=== PATIENT | female | born 1960 | race Caucasian/White ===

== ENCOUNTER → 2023-11-07 15:55 | Outpatient (REF) | payer MEDICARE, SELFPAY ==
[2023-11-07 16:34] LABS: INR 0.93; PT 12.2 Sec (11.4-14.6)
[2023-11-07 16:35] LABS: APTT 25.1 Sec (23.4-35.0)
== END ==
LOC: REG 15:55
PROVIDERS: ATTENDING PHYSICIAN Internal Medicine Hematology & Oncology; FAMILY PHYSICIAN Family Medicine
DX: C82.91 Follicular lymphoma, unspecified, lymph nodes of head, face, and neck (principal)
CPT/HCPCS: 36415; 85610; 85730

== ENCOUNTER → 2023-11-23 08:08 | Outpatient (REF) | payer MEDICARE, SELFPAY ==
[2023-11-23 08:23] VITALS: BP 130/56; BP_SYST 94
[2023-11-23 09:02] VITALS: BP 128/66
== END ==
LOC: RADI 08:08
PROVIDERS: ATTENDING PHYSICIAN Internal Medicine Hematology & Oncology; FAMILY PHYSICIAN Family Medicine
DX: Z45.2 Encounter for adjustment and management of vascular access device (principal); Z85.72 Personal history of non-Hodgkin lymphomas
CPT/HCPCS: 36590; 77001

== ENCOUNTER → 2024-06-26 07:20 | Outpatient (REF) | payer MEDICARE, SELFPAY | LOC: HWRAD 07:20 | PROVIDERS: ATTENDING PHYSICIAN Physician Assistant | DX: Z85.72 Personal history of non-Hodgkin lymphomas (principal); K76.0 Fatty (change of) liver, not elsewhere classified; I25.10 Atherosclerotic heart disease of native coronary artery without angina pectoris | CPT/HCPCS: 75571; 76700 ==

== ENCOUNTER → 2024-11-23 11:03 | Outpatient (REF) | payer MEDICARE, SELFPAY | LOC: HWRAD 11:03 | PROVIDERS: ATTENDING PHYSICIAN Nurse Practitioner Family; FAMILY PHYSICIAN Physician Assistant | DX: R05.3 Chronic cough (principal) | CPT/HCPCS: 71250 ==

== ENCOUNTER 2024-12-03 06:26 | Day surgery (SDC) | payer MEDICARE, SELFPAY | END 2024-12-03 09:23 | disposition home or self-care (01) | LOC: GI 06:26 | PROVIDERS: ATTENDING PHYSICIAN Internal Medicine | DX: Z12.11 Encounter for screening for malignant neoplasm of colon (principal) | CPT/HCPCS: G0121 ==

== ENCOUNTER → 2024-12-10 12:30 | Outpatient (REF) | payer MEDICARE, SELFPAY | LOC: HWLAB 12:30 | PROVIDERS: ATTENDING PHYSICIAN Nurse Practitioner Family; FAMILY PHYSICIAN Physician Assistant | DX: R05.3 Chronic cough (principal) | CPT/HCPCS: 36415; 87070; 87077; 87102; 87116; 87186; 87205; 87206 ==

== ENCOUNTER → 2024-12-18 14:52 | Outpatient (REF) | payer MEDICARE, SELFPAY | LOC: HWRAD 14:52 | PROVIDERS: ATTENDING PHYSICIAN Nurse Practitioner Family; FAMILY PHYSICIAN Physician Assistant | DX: R05.3 Chronic cough (principal) | CPT/HCPCS: 70486 ==

== ENCOUNTER → 2024-12-25 13:25 | Outpatient (REF) | payer MEDICARE, SELFPAY | LOC: CLAB 13:25 | PROVIDERS: ATTENDING PHYSICIAN Student in an Organized Health Care Education/Training Program | DX: J32.9 Chronic sinusitis, unspecified (principal) | CPT/HCPCS: 87070; 87205 ==

== ENCOUNTER → 2025-02-08 07:21 | Outpatient (REF) | payer MEDICARE, SELFPAY ==
[2025-02-08 09:37] LABS: Hematocrit 41.5 % (37.0-47.0); Hemoglobin 13.6 g/dL (12.0-16.0); Mean Corp Hgb Conc. 32.8 g/dL (33.0-37.0); Mean Corpuscular Volume 97.6 fL (81.0-99.0); Platelet Count 259 10^3/uL (130-400); Red Cell Dist. Width 12.8 % (11.5-14.5)
[2025-02-08 09:46] LABS: Blood Urea Nitrogen 20 mg/dl (7-17); Calcium 9.6 mg/dl (8.4-10.2); Carbon Dioxide 29 mmol/L (22-30); Chloride 105 mmol/L (98-107); Glucose 95 mg/dl (70-99); Potassium 4.7 mmol/L (3.5-5.1); Sodium 137 mmol/L (135-145); eGFR > 60.00
== END ==
LOC: SDSPAT 07:21
PROVIDERS: ATTENDING PHYSICIAN Student in an Organized Health Care Education/Training Program; FAMILY PHYSICIAN Physician Assistant
DX: Z01.818 Encounter for other preprocedural examination (principal)
CPT/HCPCS: 36415; 80048; 85027; 93005

== ENCOUNTER 2025-03-04 06:18 | Day surgery (SDC) | payer MEDICARE, SELFPAY ==
[2025-02-08 14:04] VITALS: BMI 30.7
[2025-03-04 11:25] VITALS: BP 141/78
[2025-03-04] MEDS: NORMOSOL-R/PLASMALYTE-A 1000 IV (11:34)
[2025-03-04 11:36] VITALS: BMI 30.7
[2025-03-04 17:05] VITALS: BP 137/49; BP 141/78
[2025-03-04 17:15] VITALS: BP 124/50
[2025-03-04 17:30] VITALS: BP 116/58
[2025-03-04 17:40] VITALS: BP 124/95
[2025-03-04 17:55] VITALS: BP 129/81
--- NOTE | 2025-03-05 08:20 | OR.RPT ---
Operative Report
Operative Report
Patient name: Tri Jones
Date of : 1960

Date of operation: 03/04/2025
Preoperative diagnosis: Bilateral intranasal synechia, bilateral chronic maxillary sinusitis, bilateral chronic ethmoid sinusitis, bilateral chronic sphenoid sinusitis, inferior turbinate hypertrophy
Postoperative diagnosis: Bilateral intranasal synechia, bilateral chronic maxillary sinusitis, bilateral chronic ethmoid sinusitis, bilateral chronic sphenoid sinusitis, inferior turbinate hypertrophy
Operation/procedures performed:
1. Bilateral total ethmoidectomy with sphenoidotomy and removal of tissue
2. Bilateral maxillary antrostomy with tissue removal
3. Bilateral maxillary antrostomy with tissue removal
4. Bilateral lysis of intranasal synechia
5. Bilateral inferior turbinate reduction
Surgeon: Miguel Buck DO
Anesthesia: General, ETT
Anesthesiologist: Alba
Surgical Indications: Tri is a 64-year-old woman with a history of chronic sinusitis status post endoscopic sinus surgery greater than a decade ago who presented to the otolaryngology department over the last several months with progressively
worsening thick smelling postnasal drip, facial pain and pressure and chronic cough. Nasal endoscopy and CT sinus demonstrated evidence of chronic bilateral sinusitis, bilateral intranasal synechiae obstructing outflows of the maxillary and ethmoid
sinuses. This was initially treated with a course of medical therapy which included nasal saline irrigations, intermittent antibiotics and intranasal corticosteroids. After 4 to 6 weeks of adequate medical therapy and no relief, recommendation was
made for endoscopic sinus surgery, lysis of intranasal synechiae and turbinate reduction. After careful deliberation the patient provided informed written consent for this procedure.
Details of Procedure: The patient was met in the preoperative holding area where informed written consent was reviewed and all questions were answered. The patient was then brought back to the operating room and transferred supine on the operating
room table secured with a safety belt. General anesthesia was induced and the patient was intubated orotracheally without difficulty by the anesthesia team.
The table was rotated 90 degrees away from anesthesia and the OMGP[employer] sinus navigation and image guidance equipment was set up. Cottonoid pledgets soaked in topical 4% cocaine were placed into the bilateral nasal cavities for decongestion and
vasoconstriction as well as topical anesthesia. The remainder of the operative equipment was then set up and the image guidance system was calibrated after the patient was prepped and draped. A surgical timeout was then performed confirming the
necessary perioperative information. Next using the 0 degree 4 mm nasal endoscope, 1% lidocaine with epinephrine 1 100,000 was infiltrated in the bilateral nasal cavities for local anesthesia and vasoconstriction. The cocaine soaked pledgets were
placed back in the nasal cavities. Next submucous resection of the bilateral inferior turbinates with turbinate outfracture was then performed. This improved the surgical exposure. The operation was then started on the left and a [place] elevator
was used to divide the intranasal synechia on the left which was between the left middle turbinate and lateral nasal wall. This scar band was obstructing the outflow of the left maxillary sinus as well as the ostiomeatal complex. The inferior
third of the left middle turbinate was then resected using a Miky-Cut instrument and this was completed with a microdebrider. A curved ball-tipped probe was then used to confirm entry into the left maxillary sinus and once this was done, a
microdebrider and backbiter was used to revise the left maxillary antrostomy and remove tissue from the left maxillary sinus. Dissection then proceeded posteriorly through the anterior ethmoids and extensive polyps were removed using microdebrider.
Dissection then proceeded through the posterior ethmoids where there were fewer polyps and mostly polypoid tissue. The left sphenoid sinus was then entered through the existing sphenoid sinusotomy and small amounts of tissue were removed. The
left nasal cavity and paranasal sinuses were irrigated with sterile saline and suctioned dry. Afrin-soaked pledgets were placed for hemostasis. This concluded the left side procedure and attention was turned to the right.
There was a long segment intranasal synechiae between the lateral surface of the middle turbinate to the right lateral nasal wall that was obstructing the maxillary sinus outflow as well as the ostiomeatal complex. This was sharply divided with a
[place] elevator and a Miky-Cut instrument was used to resect the inferior third of the right middle turbinate. This was completed with a microdebrider. A curved ball-tipped probe was then used to confirm entry into the right maxillary sinus and the
existing maxillary antrostomy was enlarged using a backbiter to the left and a microdebrider. Dissection then continued posteriorly where there were extensive polypoid changes in the left ethmoid sinus that was removed with microdebrider. The
right sphenoid sinus os was then directly visualized and confirmed with image guidance navigation and this was entered using microdebrider and gently enlarge. The right paranasal sinuses were then irrigated copiously with sterile saline and
suctioned dry. Afrin-soaked pledgets were placed for hemostasis.
Next Nasopore hemostatic gauze was placed in the bilateral ethmoid cavities. This concluded the procedure. The patient was rotated back toward the anesthesia team where they emerged safely from anesthesia and were extubated without difficulty. The
patient was brought safely to the PACU in stable condition.
Complications: None immediately present
Blood loss: 10cc
Disposition: Stable to PACU followed by d/c to home
== END 2025-03-04 18:14 | disposition home or self-care (01) ==
LOC: SDS 06:18
PROVIDERS: ATTENDING PHYSICIAN Student in an Organized Health Care Education/Training Program; FAMILY PHYSICIAN Physician Assistant
DX: J32.0 Chronic maxillary sinusitis (principal); J32.2 Chronic ethmoidal sinusitis; J32.3 Chronic sphenoidal sinusitis; J34.3 Hypertrophy of nasal turbinates
CPT/HCPCS: 31257; 31267; 30140; 31240; 87070; 87205; 88304; 88311